=== PATIENT | male | born 1995 | race Caucasian/White ===

== ENCOUNTER 2019-12-11 00:56 | Emergency (ER) | payer OTHER ==
[2019-12-11] MEDS ORDERED: NA CHLORIDE 0.9% 1,000 ML ONE (01:44)
[2019-12-11] MEDS ORDERED: ONDANSETRON 4 MG/2 ML VIAL ONE (01:44)
[2019-12-11 01:46] LABS: Absolute Lymphocytes (CBC) 1.3 K/uL (0.7-4.9); Basophils % 0.7 % (0-1.3); Hematocrit 46.2 % (39.6-49.0); Lymphocytes % 17.6 % (15.3-44.8); MPV 8.3 fL (7.6-11.3)
[2019-12-11 01:49] LABS: Protime INR 1.03
[2019-12-11 01:57] LABS: Barbiturates NEGATIVE (NEGATIVE); Benzodiazepines NEGATIVE (NEGATIVE); Cocaine NEGATIVE (NEGATIVE); METHAMPHETAM NEGATIVE (NEGATIVE); Methadone NEGATIVE (NEGATIVE); Opiates NEGATIVE (NEGATIVE); Phencyclidine NEGATIVE (NEGATIVE); THC Cannibis NEGATIVE (NEGATIVE)
[2019-12-11 02:26] LABS: Albumin 4.3 g/dL (3.4-5.0); Bilirubin Direct 0.2 mg/dL (0-0.2); Bilirubin Total 0.7 mg/dL (0.2-1.0); Ferritin 119.2 ng/mL (26-388); Potassium 3.6 mmol/L (3.5-5.1); Protein, Total 7.4 g/dL (6.4-8.2)
[2019-12-11 03:16] LABS: Urine Blood NEGATIVE (NEG); Urine Glucose NEGATIVE (NEG); Urine Protein NEGATIVE (NEG); Urine Specific Gravity 1.025 (1.005-1.030)
[2019-12-11 07:03] LABS: Ferritin 102.5 ng/mL (26-388)
--- NOTE | 2019-12-11 10:40 | EDPHYS ---
Physician Documentation [facility] Name: Ga Sam Age: 24 yrs Sex: Male : 1995 Arrival Date: 12/11/2019 Time: 00:58 Bed 16 Private MD: ED Physician Aydin Pisano HPI: 12/10 01:15 This 24 yrs old Male presents to ER via Ambulatory with complaints of cp Overdose, Suicidal Ideation. 01:15 The patient presents to the emergency department after a known overdose, that was cp intentional. 01:15 Context: Method: the patient has a confirmed or suspected ingestion, combination of cp unknown number of iron, Benadryl, aspirin, ibuprofen and OTC cold tablets, Time: yesterday, at 22:00, Extent: it is unknown what amount the patient ingested, the OD/poisoning occurred at at home, and was witnessed no one, Psychiatric history: none, Previous OD/poisoning history: none. Associated signs and symptoms: Pertinent positives: nausea, tearfulness, vomiting, Pertinent negatives: visual hallucinations. Historical: - Allergies: 01:16 No Known Allergies; aa1 - Home Meds: 01:16 None [Active]; aa1 - PMHx: 01:16 deaf; aa1 - PSHx: 01:16 cochlear implant; aa1 - Immunization history:: Flu vaccine is not up to date. - Social history:: Smoking status: Patient denies any tobacco usage or history of. Patient uses alcohol, occasionally. Patient/guardian denies using street drugs, IV drugs. ROS: 01:20 Constitutional: Negative for body aches, chills, fever, poor PO intake. cp 01:20 Eyes: Negative for injury, pain, redness, and discharge. cp 01:20 ENT: Negative for drainage from ear(s), ear pain, difficulty swallowing, difficulty handling secretions. 01:20 Cardiovascular: Negative for chest pain. 01:20 Respiratory: Negative for cough, shortness of breath, wheezing. 01:20 Abdomen/GI: Positive for nausea and vomiting, Negative for abdominal pain, constipation. 01:20 Neuro: Negative for altered mental status, headache. 01:20 Psych: Positive for depression, suicide gesture, Negative for visual hallucinations. 01:20 All other systems are negative. Exam: 01:25 Constitutional: The patient appears in no acute distress, alert, awake, cp non-diaphoretic, non-toxic, well developed, well nourished. 01:25 Head/Face: Normocephalic, atraumatic. cp 01:25 Eyes: Periorbital structures: appear normal, Pupils: equal, round, and reactive to light and accomodation, Extraocular movements: intact throughout, Conjunctiva: normal, no exudate, no injection, Sclera: no appreciated abnormality, Lids and lashes: appear normal, bilaterally. 01:25 ENT: External ear(s): are unremarkable, Nose: is normal, Mouth: is normal, Posterior pharynx: is normal, airway is patent, no erythema, no exudate. 01:25 Neck: ROM/movement: is normal, is supple, without pain, no range of motions limitations, no nuchal rigidity. 01:25 Chest/axilla: Inspection: normal, Palpation: is normal, no crepitus, no tenderness. 01:25 Cardiovascular: Rate: normal, Rhythm: regular, Heart sounds: murmur, not appreciated, cp rub, not appreciated, gallop, not appreciated, Edema: is not appreciated. 01:25 Respiratory: the patient does not display signs of respiratory distress, Respirations: cp normal, no use of accessory muscles, labored breathing, is not present, tachypnea, is not appreciated, Breath sounds: are clear throughout, no decreased breath sounds, no wheezing. 01:25 Abdomen/GI: Inspection: abdomen appears normal, Bowel sounds: active, all quadrants, Palpation: abdomen is soft and non-tender, in all quadrants, voluntary guarding, is not appreciated, involuntary guarding, is not appreciated. 01:25 Back: pain, is absent, ROM is normal. 01:25 Skin: cellulitis, is not appreciated, no rash present. 01:25 Neuro: Orientation: to person, place \T\ time. Mentation: is normal, Cerebellar function: is grossly normal, Motor: moves all fours, strength is normal, Sensation: no obvious gross deficits. 01:25 Psych: Behavior/mood is cooperative, Patient having thoughts of suicide. Judgement / Insight is normal. Delusions/hallucinations are not present. 01:42 ECG was reviewed by the Attending Physician. cp Vital Signs: 01:10 Weight 68.04 kg; Height 5 ft. 6 in. (167.64 cm); aa1 01:10 BP 141 / 99; Pulse 62; Resp 17; Pulse Ox 99% on R/A; lp1 01:49 Temp 98.4(O); mt 02:00 BP 124 / 91; Pulse 65; Resp 19; ah 03:00 BP 121 / 87; Pulse 57; Resp 17; ah 04:00 BP 118 / 84; Pulse 55; Resp 15; ah 05:00 BP 109 / 80; Pulse 64; Resp 21; ah 06:00 BP 106 / 78; Pulse 57; Resp 13; ah 08:37 BP 105 / 78; Pulse 58; Resp 16; Temp 97.7; Pain 0/10; ap 12:10 BP 115 / 67; Pulse 68; Resp 17; Temp 97.9; Pain 0/10; ap 01:10 Body Mass Index 24.21 (68.04 kg, 167.64 cm) aa1 MDM: 01:03 Patient medically screened. 03:30 Data reviewed: vital signs, nurses notes, lab test result(s), I have discussed the cp patient's presentation/case with the attending Emergency Department Physician;. 07:16 Differential diagnosis: Ingestion/exposure to TYLENOL polypharmacy. Data interpreted: tw4 Pulse oximetry: Interpretation: normal. Awaiting: labs results, Psychiatric aboriginal education teacher. 14:00 ED course: The patient family was concerned that the patient's needs (deaf) may not be kdr accommodated. I attempted several times to contact Dr. Garcia the last was at 2:00 PM. Left messages both time. I discussed with the accepting MD the need to accommodate the needs of a deaf person. She called [facility] directly and indicated to her that they routinely care for deaf patients and currently have one or more deaf patients on their service. I related this information to the family. They were agreeable to transfer. The patient was sleeping comfortably at this time.. 12/10 01:17 Order name: Acetaminophen; Complete Time: 02:28 cp 12/10 02:31 Interpretation: ACETA 17.9; Reviewed. 12/10 01:17 Order name: Basic Metabolic Panel; Complete Time: 02:28 cp 12/10 02:30 Interpretation: Normal except: GLUC 131; GFR 73. cp 12/10 01:17 Order name: CBC with Diff; Complete Time: 02:28 cp 12/10 02:30 Interpretation: Normal except: GLORIA% 76.3. cp 12/10 01:17 Order name: ETOH Level; Complete Time: 03:03 cp 12/10 03:06 Interpretation: Reviewed. cp 12/10 01:17 Order name: Hepatic Function; Complete Time: 02:28 cp 12/10 02:31 Interpretation: Within normal limits. cp 12/10 01:17 Order name: Acetaminophen ea 12/10 01:18 Order name: PT-INR; Complete Time: 02:28 cp 12/10 01:18 Order name: Ptt, Activated; Complete Time: 02:28 cp 12/10 01:18 Order name: Salicylate; Complete Time: 02:28 cp 12/10 01:18 Order name: Urine Drug Screen; Complete Time: 02:28 cp 12/10 01:18 Order name: EKG; Complete Time: 01:21 cp 12/10 01:18 Order name: PT-INR ea 12/10 01:18 Order name: Ptt, Activated ea 12/10 01:18 Order name: Salicylate ea 12/10 01:18 Order name: Urine Drug Screen ea 12/10 01:49 Order name: Ferritin; Complete Time: 02:28 EDMS 03 02:31 Interpretation: Within normal limits: TE 119.2. cp 12/10 01:51 Order name: Urine Dipstick--Ancillary (enter results); Complete Time: 08:49 mw2 12/10 06:22 Order name: Ferritin; Complete Time: 08:49 lp1 12/10 06:22 Order name: Acetaminophen; Complete Time: 08:49 lp1 12/10 11:03 Order name: Troponin (emerg Dept Use Only); Complete Time: 12:55 kdr 05 11:05 Order name: Acetaminophen; Complete Time: 12:55 kdr 05 13:23 Order name: CK; Complete Time: 14:23 em1 12/10 01:18 Order name: EKG - Nurse/Tech; Complete Time: 01:47 ea 12/10 01:18 Order name: IV Saline Lock; Complete Time: 01:48 ea 12/10 01:18 Order name: Labs collected and sent; Complete Time: 01:47 ea 12/10 01:18 Order name: Urine Dipstick-Ancillary (obtain specimen); Complete Time: 01:47 ea 12/10 08:30 Order name: Diet Regular; Complete Time: 08:31 dh3 12/10 11:16 Order name: Diet Regular; Complete Time: 11:17 ap 12/10 12:17 Order name: EKG Electrocardiogram EDMS EC:42 Rate is 62 beats/min. Rhythm is regular. CO interval is normal. QRS interval is cp prolonged at 108 msec. QT interval is normal. T waves are Inverted in leads III, aVF. Interpreted by me. Administered Medications: 01:55 Drug: NS 0.9% 1000 ml Route: IV; Rate: 1 bolus; Site: left antecubital; 07:00 Follow up: IV Status: Completed infusion; IV Intake: 1000ml em 01:55 Drug: Zofran (Ondansetron) 4 mg Route: IVP; Site: left antecubital; 02:55 Follow up: Response: No adverse reaction; Nausea is decreased Disposition: 10:38 Co-signature as Attending Physician, Aydin Pisano MD. Co-signature as Attending [facility] Physician, Aydin Pisano MD I agree with the assessment and plan of care. Disposition: 12/11/19 10:39 Transfer ordered to [facility]. Diagnosis are Suicide attempt, Suicidal ideations. - Reason for transfer: Higher level of care. - Accepting physician is Dr. [facility]. - Condition is Fair. - Problem is new. - Symptoms have improved. Signatures: Dispatcher [employer] EDMS Tressa Trinidad RN RN aa1 Aydin Pisano MD MD [facility] José Willoughby RN RN em Page, Corey, PA PA cp Antunez, Elena, RN RN ea Wadley, Terrence, MD MD [facility] Rani Keys RN RN Corrections: (The following items were deleted from the chart) 01:45 01:22 BASIC METABOLIC PANEL+C.LAB.BRZ ordered. EDMS EDMS :45 01:22 CBC+H.LAB.BRZ ordered. EDMS EDMS :45 01:22 ETHANOL+C.LAB.BRZ ordered. EDMS EDMS :45 01:22 HEPATIC FUNCTION+C.LAB.BRZ ordered. EDKS EDMS 01:48 01:15 EKG - Nurse/Tech ordered. mt 01:48 01:15 IV Saline Lock ordered. cp mt 01:48 01:15 Labs collected and sent ordered. [facility] 01:49 01:15 Urine Dipstick-Ancillary ordered. [facility] 01:49 01:48 FERRITIN+C.LAB.BRZ ordered. EDMS EDMS 02:05 01:15 Context: Method: the patient has a confirmed or suspected ingestion, combination cp of unknown number of iron supplement, Benadryl, and OTC cold medicine, cp 15:03 10:39 12/11/2019 10:39 Transfer ordered to [facility]. Diagnosis is Suicide em attempt; Suicidal ideations. Reason for transfer: Higher level of care. Accepting physician is Dr. [facility]. Condition is Fair. Problem is new. Symptoms have improved. kdr
--- NOTE | 2019-12-11 10:40 | ER ---
Nurse's Notes [facility] Name: Ga Sam Age: 24 yrs Sex: Male : 1995 Arrival Date: 12/11/2019 Time: 00:58 Bed 16 Private MD: Diagnosis: Suicide attempt;Suicidal ideations Presentation: 12/10 01:10 Chief complaint: Parent and/or Guardian states: that she [facility] and she found pt crying and vomiting with multiple pill bottles around him. States pt told her that he took about 50 pills that were a combination of aspirin, iron, benadryl, and ibuprofen but is unsure exact quantity of each medication. Reports pt ingested pills in an attempt to harm himself because he has been struggling a lot lately with finding a job and being accepted since he is deaf. Coronavirus screen: The patient has NOT traveled to a country currently being monitored by the [facility] within the last 14 days. Proceed with normal triage procedures. Ebola Screen: No symptoms or risks identified at this time. Risk Assessment: Do you want to hurt yourself or someone else? Patient reports desire/thoughts of hurting themselves or someone else. Provider notified. 01:10 Method Of Arrival: Ambulatory aa 01:10 Acuity: BALAJI 2 aa1 03:31 Initial Sepsis Screen: Does the patient meet any 2 criteria? No. Patient's initial sepsis screen is negative. Does the patient have a suspected source of infection? No. Patient's initial sepsis screen is negative. 03:31 Onset of symptoms was December 10, 2019 at 22:00. Triage Assessment: 01:10 General: Appears in no apparent distress. uncomfortable, Behavior is crying. aa1 Historical: - Allergies: 01:16 No Known Allergies; aa1 - Home Meds: 01:16 None [Active]; aa1 - PMHx: 01:16 deaf; aa1 - PSHx: 01:16 cochlear implant; aa1 - Immunization history:: Flu vaccine is not up to date. - Social history:: Smoking status: Patient denies any tobacco usage or history of. Patient uses alcohol, occasionally. Patient/guardian denies using street drugs, IV drugs. Screenin:29 Abuse screen: Denies threats or abuse. Nutritional screening: No deficits noted. Tuberculosis screening: No symptoms or risk factors identified. Fall Risk None identified. Assessment: 01:00 Reassessment: Pt belongings given to parents. 01:00 General: Appears distressed, Behavior is crying. Pain: Denies pain. Neuro: Level of Consciousness is awake, alert, Oriented to person, place, time, situation. Cardiovascular: Heart tones S1 S2 present. Respiratory: Airway is patent Respiratory effort is even, unlabored, Respiratory pattern is regular, symmetrical, Breath sounds are clear bilaterally. GI: Bowel sounds present X 4 quads. Reports vomiting. : No signs and/or symptoms were reported regarding the genitourinary system. EENT: No signs and/or symptoms were reported regarding the EENT system. 01:39 Reassessment: Poison Control contacted; Spoke with [facility] [place] [facility]; States ingestion of Motrin may cause GI irritation, N/V, Abdominal pain, in large doses could cause acute renal failure, recommended to give IV fluids; Ingestion of iron supplement may cause toxicity, suggested to check Iron levels Q4h for decreasing levels; Benadryl and Contac ingestion may cause HTN, tachycardia, decreased bowel sounds, dilated pupils, hallucinations, cardiac dysfunction, suggested to administer Na Bicarb if necessary; Suggested to administer benzodiazepines if seizure activity. 02:30 Reassessment: Patient appears in no apparent distress at this time. Patient and/or family updated on plan of care and expected duration. Pain level reassessed. Patient is alert, oriented x 3, equal unlabored respirations, skin warm/dry/pink. No vomiting noted at this time. 03:30 Reassessment: Pt resting at this time with family at bedside. No needs voiced. 04:37 Reassessment: Pt resting at this time, father at bedside. No distress noted. 05:31 Reassessment: Patient appears in no apparent distress at this time. Patient and/or family updated on plan of care and expected duration. Pain level reassessed. Patient is alert, oriented x 3, equal unlabored respirations, skin warm/dry/pink. Mom at bedside, no needs voiced at this time. 06:05 Reassessment: Received call from [facility] [place] [facility], he was checking ah on the patient. He recommended to repeat ferritin and acetaminophen levels and if normal, he felt Pt could be cleared. Pt has not experienced any N/V throughout the night. Mom at bedside. MD informed of phone call and recommendation. 06:40 Reassessment: Labs obtained and sent. Pt denies any pain or nausea at this time. No ah needs voiced. Mom at bedside. 07:15 Reassessment: mother and father at bedside, pt currently denies SI/HI, pending results em from labs before being medically cleared. 09:37 Reassessment: Patient appears in no apparent distress at this time. Patient and/or em family updated on plan of care and expected duration. Pain level reassessed. Patient is alert, oriented x 3, equal unlabored respirations, skin warm/dry/pink. Patient denies pain at this time. 10:07 Reassessment: [place] [facility] [place] [facility] request an updated EKG em because the last one has an abnormal ST reading, provider notified. 12:00 Reassessment: Patient appears in no apparent distress at this time. Patient and/or em family updated on plan of care and expected duration. Pain level reassessed. Patient is alert, oriented x 3, equal unlabored respirations, skin warm/dry/pink. repeat labs sent to lab, currently waiting for acceptance from facility. 13:04 Reassessment: family request to speak to about pt status, Dr. Pisano notified. em 13:43 Reassessment: Dr. Pisano and charge nurse at bedside. em 15:00 Reassessment: Patient appears in no apparent distress at this time. Patient and/or em family updated on plan of care and expected duration. Pain level reassessed. Patient is alert, oriented x 3, equal unlabored respirations, skin warm/dry/pink. report given to EMS, pt belongings given to EMS. Psych: 01:00 Subjective: Patient's mood is sad, tearful. Subjective: Delusions are denied, ah Hallucinations are denied Having thoughts of suicide. Plan for suicide is attempted to overdose on OTC medications. Objective: Patient is cooperative, Speech is Pt is deaf Affect is flat, Patient has mutilated themselves by superficial abrasion to left arm. Interventions: Removed personal items and placed in bag. Patient placed in hospital gown. Searched person for dangerous items. Urine collected and sent for urine drug test. Suicide Risk Assessment: Sad Person Scale: Sex of patient: Male: Score 1 point. Age of patient: Score 1 point if patient 15-34. Depression: Score 1 point if signs of depression are present. Previous Attempt: Score 0 point if patient has not previously attempted suicide. Substance Abuse: Score 0 point if patient does not abuse alcohol or drugs. Rational Thinking: Score 1 point if patient is lacking rational thinking. Social Support: Score 0 if social support is present/available. Organized Plan: Score 1 point if patient had a plan in place. Relationship: Score 1 point if patient is , , , or for a single male Chronic Sickness: Score 0 point if patient does not have a chronic illness, debilitating, or severe disorder. TOTAL POINTS: If total points are 5-6, proposed clinical action is to strongly consider hospitalization, depending upon confidence in the follow-up arrangement. Implement suicide precautions. Safety Checks: parents at bedside. Pt denies substance abuse. Overdose: 03:06 Patient took Pt states about 50 pills including ibuprofen 200 mg tabs, benadryl 25mg ah tabs, iron 28mg tabs, and contac cold/flu tabs. Overdose occurred 3-4 hours ago. Vital Signs: 01:10 Weight 68.04 kg; Height 5 ft. 6 in. (167.64 cm); aa1 01:10 BP 141 / 99; Pulse 62; Resp 17; Pulse Ox 99% on R/A; lp1 01:49 Temp 98.4(O); mt 02:00 BP 124 / 91; Pulse 65; Resp 19; ah 03:00 BP 121 / 87; Pulse 57; Resp 17; ah 04:00 BP 118 / 84; Pulse 55; Resp 15; ah 05:00 BP 109 / 80; Pulse 64; Resp 21; ah 06:00 BP 106 / 78; Pulse 57; Resp 13; ah 08:37 BP 105 / 78; Pulse 58; Resp 16; Temp 97.7; Pain 0/10; ap 12:10 BP 115 / 67; Pulse 68; Resp 17; Temp 97.9; Pain 0/10; ap 01:10 Body Mass Index 24.21 (68.04 kg, 167.64 cm) aa1 ED Course: 00:58 Patient arrived in ED. cl3 00:59 Tio Li PA is PHCP. cp 00:59 Sterling Rouse MD is Attending Physician. cp 01:00 Patient has correct armband on for positive identification. Placed in gown. Bed in low ah position. Side rails up X2. Seizure precautions initiated. associate professor of literacy on. Pulse ox on. NIBP on. Sitter at bedside. Warm blanket given. 01:10 Patient placed in an exam room, on a stretcher. aa1 01:14 Triage completed. aa1 01:27 Raisa Owen, RN is Primary Nurse. lp1 01:48 Inserted saline lock: 20 gauge in left forearm, using aseptic technique. Blood mt collected. 01:48 Urine collected: clean catch specimen, clear, suki colored, EKG done, by ED staff, mt reviewed by Sterling Rouse MD. 10:17 EKG done, by ED staff, reviewed by Aydin Pisano MD. 3 10:22 Attending Physician role handed off by Sterling Rouse MD [facility] 10:22 Aydin Pisano MD is Attending Physician. kdr 12:38 Diet tray given. 3 14:48 No provider procedures requiring assistance completed. IV discontinued, intact, em bleeding controlled, No redness/swelling at site. Pressure dressing applied. Administered Medications: 01:55 Drug: NS 0.9% 1000 ml Route: IV; Rate: 1 bolus; Site: left antecubital; 07:00 Follow up: IV Status: Completed infusion; IV Intake: 1000ml em 01:55 Drug: Zofran (Ondansetron) 4 mg Route: IVP; Site: left antecubital; 02:55 Follow up: Response: No adverse reaction; Nausea is decreased ah Intake: 07:00 IV: 1000ml; Total: 1000ml. em Outcome: 10:39 ER care complete, transfer ordered by . kdr 14:59 [place] [facility] [place] em form completed. 14:59 Condition: good 14:59 Instructed on the need for transfer, Demonstrated understanding of instructions. 15:03 Patient left the ED. em Signatures: Tressa Trinidad, GELY RN aa1 Aydin Pisano MD MD kdr José Willoughby RN RN em Raisa Owen, GELY RN 1 Tio Li PA PA cp Ponce, Ana ap Thompson, Moriah mt Herrera, Deanna dh3 Tio Briones jp3 Cr Burgess cl3 Rani Keys, RN RN
--- NOTE | 2019-12-11 11:37 | EKG ---
Test Date: 2019-12-11 Test Time: 01:32:17 Loom Setter Fourdrinier: NARAYAN MEASUREMENT RESULTS: Intervals: Rate: 62 FL: 148 QRSD: 108 QT: 404 QTc: 410 [place]: P: 14 FL: 148 QRS: 22 T: 5 INTERPRETIVE STATEMENTS: Normal sinus rhythm Nonspecific ST abnormality Abnormal ECG No previous ECG available for comparison Electronically Signed On 12-11-19 11:36:19 FIELD MAP EDITOR by Wyatt Dinero
[2019-12-11 15:18] VITALS: O2SAT 99
[2019-12-11 15:30] VITALS: BP 115/67; TEMP 97.9
--- NOTE | 2019-12-11 16:48 | EKG ---
Test Date: 2019-12-11 Test Time: 10:17:02 Lending Consultant: BLOSSOM MEASUREMENT RESULTS: Intervals: Rate: 64 ME: 160 QRSD: 108 QT: 388 QTc: 400 [place]: P: 23 ME: 160 QRS: 40 T: 7 INTERPRETIVE STATEMENTS: Normal sinus rhythm with sinus arrhythmia Nonspecific ST and T wave abnormality Abnormal ECG Compared to ECG 12/11/2019 01:32:17 No significant changes Electronically Signed On 12-11-19 16:47:28 GARNETTER by Karthikeyan Keys
== END 2019-12-11 15:03 ==
LOC: ER 00:56
DX: T14.91XA Suicide attempt, initial encounter (principal); T50.992A Poisoning by other drugs, medicaments and biological substances, intentional self-harm, initial encounter; Y92.009 Unspecified place in unspecified non-institutional (private) residence as the place of occurrence of the external cause
CPT/HCPCS: 96361; 93005 ×2; 85025; 80048; 36415; 80320; 82550; 80329 ×4; 85610; 80076; 80307 ×8; 85730; 81003; 84484; 82728 ×2; 96374; 99285; J7030; J2405